=== PATIENT | female | born 1995 | race Hispanic/Latino ===

== ENCOUNTER → 2018-05-01 | Outpatient (CLI) | payer OTHER | LOC: M RAD 12:36 | DX: N63.11 Unspecified lump in the right breast, upper outer quadrant (principal) | CPT/HCPCS: 77065 ==

== ENCOUNTER → 2018-06-25 | Outpatient (REF) | payer OTHER | LOC: M LAB REF 13:28 | PROVIDERS: ATTEND Surgery | DX: N63.20 Unspecified lump in the left breast, unspecified quadrant (principal) ==